=== PATIENT | female | born 1965 | race Caucasian/White ===

== ENCOUNTER 2016-08-22 08:46 | Emergency (ER) | payer OTHER ==
[2016-08-22 09:00] VITALS: BP 128/58
--- NOTE | 2016-08-22 10:27 | RAD ---
INDICATION: Knee pain COMPARISON: None TECHNIQUE: AP, lateral, and oblique views were obtained. FINDINGS: There is minor condylar spurring with spurring tibial spines. There is moderate spurring about the patellofemoral joint space compartment. There is no joint effusion. IMPRESSION: MILD TO MODERATE OSTEOARTHRITIS
--- NOTE | 2016-08-22 10:59 | UC ---
Sharonda Connell Matthew, scribed for Linda Zaragoza MD on 08/22/16 at 0937 . Knee Pain HPI - HPI Summary HPI Summary: A 51 y/o female presents to [facility] [place] [place] with gradually improving right knee pain since 6 days ago. The pain is rated 4/10 in severity and described as soreness. The patient states that she was carrying a laundry basket up the stairs, when she felt a "pop" in her right knee. She did not fall and the exact mechanism of injury is unknown. Immediately after the injury, the patient had limited ROM, swelling, and nausea. She has been icing the area, taking ibuprofen, and resting. She states the pain has improved since onset and she has been able to ambulate mildly today. She presents to [facility] today, because she want to insure nothing is structurally damaged. - History of Current Complaint Chief Complaint: UCLowerExtremity Stated Complaint: KNEE INJURY Time Seen by Provider: 08/22/16 09:29 Hx Obtained From: Patient Hx Last Menstrual Period: 08/01/16 ?: No Onset/Duration: Sudden Onset, Lasting Days - 6, Still Present Severity Initially: Moderate Severity Currently: Mild Location Of Injury: right knee Pain Intensity: 4 Pain Scale Used: 0-10 Numeric Aggravating Factor(s): Movement - ambulation, Weight Bearing Alleviating Factor(s): Rest, Cold - ice, OTC Meds - ibuprofen Associated Signs And Symptoms: Positive: Swelling - since resolved. Negative: Fever, Weakness, Numbness, Tingling Able to Bear Weight: Yes - Allergies/Home Medications Allergies/Adverse Reactions: Allergies Allergy/AdvReac Type Severity Reaction Status Date / Time No Known Allergies Allergy Verified 06/05/15 08:20 PMH/Surg Hx/FS Hx/Imm Hx Previously Healthy: Yes Endocrine History Of: Reports: Thyroid Disease - HYPOTHYROIDISM Psychological History Of: Reports: Anxiety - FEAR OF NEEDLES, IV, VERY ANXIOUS ABOUT THIS, Depression - ON MEDICATION Cancer History Of: Denies: Breast Cancer - Surgical History Surgical History: Yes Surgery Procedure, Year, and Place: 2001 RIGHT WRIST FRACTURE, [facility] [place]. 2002 BILATERAL TUBAL LIGATION, [facility] [place]. 2013 D & C, [facility] [place] - Family History Family History: No FHx of Breast CA - Social History Alcohol Use: Rare Substance Use Type: None Smoking Status (MU): Former Smoker Type: Cigarettes Amount Used/How Often: 3-4 CIG/DAY FOR 2 YRS Length of Time of Smoking/Using Tobacco: 2 YRS Have You Smoked in the Last Year: No When Did the Patient Quit Smoking/Using Tobacco: quit in high school Review of Systems Constitutional: Negative Skin: Negative Eyes: Negative ENT: Negative Respiratory: Negative Cardiovascular: Negative Gastrointestinal: Negative Genitourinary: Negative Motor: Negative Neurovascular: Negative Musculoskeletal: Arthralgia - right knee pain Neurological: Negative Psychological: Negative All Other Systems Reviewed And Are Negative: Yes Physical Exam Triage Information Reviewed: Yes Appearance: Well-Nourished Vital Signs: Initial Vital Signs Temp 97.6 F 08/22/16 08:52 Pulse 65 08/22/16 08:52 Resp 16 08/22/16 08:52 BP 128/58 08/22/16 08:52 Pulse Ox 100 08/22/16 08:52 Vital Signs Reviewed: Yes ENT Exam: Normal Neck exam: Normal - No Adenopathy appreciated Respiratory Exam: Normal - No Dsypnea, No tachypnea, normal respiratory rate Cardiovascular Exam: Normal Abdominal Exam: Normal Musculoskeletal Exam: Other - L knee nontender, no swelling. BLE feet warm to touch. No michael Homans ble. R knee with mild swelling visibly noted. Post knee with mild fluctuant swelling (susp Yates's cyst). + tender medial hamstring. Tender suprapat region. No crepitance. No laxity perse but + pain elicited with lateral rotation. Musculoskeletal: Positive: Strength Intact Neurological Exam: Normal - nonfocal, grossly intact Psychological Exam: Normal - conversing easily and appropraitely Skin Exam: Normal - no visible or reported rash Diagnostics - Radiology RT Knee XR Xray Interpretation: No Acute Changes - IMPRESSION: MILD TO MODERATE OSTEOARTHRITIS Radiology Interpretation Completed By: Radiologist Knee Pain Course/Dx - Course Course Of Treatment: No new problems in CCC. Considered below differential Dx s. Crutches encouraged. Declines. Reviewed xray results as noted in [facility]. Reviewed with pt. Encouraged f/u with pcp as scheduled on Tuesday. May benefit from phys therapy and orthopedic referral, but she will check with pcp on Tuesday. Declines knee immobilizer or parvez. She may purchase an over the counter brace. Knee immobilizer. Parvez. Questions answered to the best of my ability. - Differential Dx/Diagnosis Provider Diagnoses: R knee strain / sprain. c/n exclude internal injury Discharge - Discharge Plan Condition: Stable Disposition: HOME Patient Education Materials: Ibuprofen (By mouth), Knee Sprain (ED), Bakers Cyst (ED) Referrals: Lucas Sanchez MD [Primary Care Provider] - Additional Instructions: Follow up Dr. Sanchez on Tuesday. Seek medical attention for worse or new problems in the meantime. Avoid excess walking, stairs until you feel better. Consider walker etc for long periods of ambulation Consider parvez or over the counter knee brace (neoprene type) The documentation as recorded by the Sharonda phelps Matthew accurately reflects the service I personally performed and the decisions made by me, Linda Zaragoza MD.
== END 2016-08-22 10:47 | disposition home or self-care (01) ==
LOC: UCEAST 08:46
DX: S83.91XA Sprain of unspecified site of right knee, initial encounter (principal); X58.XXXA Exposure to other specified factors, initial encounter; Y93.E2 Activity, laundry; Y92.9 Unspecified place or not applicable; M17.11 Unilateral primary osteoarthritis, right knee; Z87.891 Personal history of nicotine dependence
CPT/HCPCS: 99211; G0463

== ENCOUNTER 2017-03-16 10:36 | Day surgery (SDC) | payer OTHER ==
[~2017-03-16 10:36] MED LIST: Buffered Lidocaine 0.9% SYRIN* 5 ML/SYR SYRINGE INTRADERM ONE
[2017-03-16] MEDS ORDERED: Buffered Lidocaine 0.9% SYRIN* 5 ML/SYR SYRINGE ONE (10:59)
[2017-03-16] MEDS ORDERED: Famotidine IV* 10 MG/ML 2 ML (20 mg) IV ONE (11:22)
[2017-03-16] MEDS ORDERED: Dexamethasone IV* 4 MG/ML 1 ML (4 MG) IV SLOW PU ONE (11:22)
[2017-03-16] MEDS ORDERED: Midazolam* 1 MG/ML 2 ML VIAL (2 MG) ONE ×2 (11:28→12:25)
[2017-03-16] MEDS ORDERED: fentaNYL* 50 MCG/ML 2 ML VIAL (100 MCG VIAL) ONE (11:28)
[2017-03-16] MEDS ORDERED: Dexamethasone IV* 4 MG/ML 1 ML (4 MG) ONE (11:30)
[2017-03-16] MEDS ORDERED: Famotidine IV* 10 MG/ML 2 ML (20 mg) ONE (11:31)
[2017-03-16 11:33] LABS: Hematocrit 43 % (35-47); Hemoglobin 14.4 g/dl (12.0-16.0); Mean Corpuscular HGB Conc 33 g/dl (31-36); Mean Corpuscular Hemoglobin 28 pg (27-31); Mean Corpuscular Volume 83 fL (80-97); Mean Platelet Volume 8 um3 (7.4-10.4); Red Cell Distribution Width 15 % (10.5-15); White Blood Count 6.3 10^3/ul (3.5-10.8)
[2017-03-16 11:39] LABS: Add Diff/Slide Review? Slide Review Added; Comments Flag Yes
[2017-03-16 12:12] LABS: TSH (Thyroid Stimulating Horm) 21.67 mcIU/mL (0.34-5.60)
[2017-03-16 12:21] LABS: Free T4 0.53 ng/dL (0.61-1.12)
[2017-03-16] MEDS ORDERED: Ketorolac INJ* 30 MG/ML 1 ML VIAL ONE (12:42)
[2017-03-16] MEDS ORDERED: Ondansetron INJ* 2 MG/ML VIAL ONE (12:42)
[2017-03-16] MEDS ORDERED: fentaNYL* 50 MCG/ML 2 ML VIAL (100 MCG VIAL) IV PRN (12:51)
[2017-03-16] MEDS ORDERED: DiMENhydriNATE IV* 50 MG/ML VIAL IV PUSH PRN (12:51)
[2017-03-16] MEDS ORDERED: Ibuprofen TAB* 600 MG PO PRN (13:21)
[2017-03-16] MEDS ORDERED: oxyCODONE/Acetamin 5/325 MG* TAB PO PRN ×2 (13:22→13:24)
[2017-03-16 14:32] VITALS: BP 118/42
--- NOTE | 2017-03-16 21:57 | OP ---
DATE OF OPERATION: 03/16/17 [facility] DATE OF : 61 SURGEON: Dr. Damian. ANESTHESIOLOGIST: Dr. Pelletier ANESTHESIA: General endotracheal. PRE-OP DIAGNOSES: Menorrhagia, irregular menses. POST-OP DIAGNOSES: Menorrhagia, irregular menses. PROCEDURE: Dilation, hysteroscopy, curettage. ESTIMATED BLOOD LOSS: Minimal, less than 20 cc. FINDINGS: Retroverted uterus. Uterus sounds to 10. Atrophic-appearing endometrium throughout. No polyps were seen. The tubal ostia were visualized bilaterally. No adnexal masses were palpated. COMPLICATIONS: None. COUNTS: Sponge count correct x2. CONDITION: The patient was brought to the recovery room, awake and in stable condition. DESCRIPTION OF PROCEDURE: The patient was brought to the operating room. When general anesthesia was found to be adequate, the patient was prepped and draped in the usual sterile fashion in the dorsal lithotomy position. Time-out was performed. Exam under anesthesia was performed with the above findings noted. The weighted speculum was placed in the vagina. The anterior lip of the cervix was grasped with a single-tooth tenaculum. The cervix was gently and easily dilated with a graduated Harper dilators. The uterus is retroverted. The hysteroscope was introduced. The endometrium appeared atrophic throughout. Both tubal ostia were visualized. The hysteroscope was removed. Curettage was performed and a small of endometrial curettings was obtained and sent to pathology. The single-tooth tenaculum was removed from the anterior lip of the cervix. Excellent hemostasis was noted. The speculum was removed from the vagina and the patient was brought to recovery room, awake and in stable condition. [id number]/[facility] #: [id number] [facility]
== END 2017-03-16 15:00 | disposition home or self-care (01) ==
LOC: OR 10:36
PROVIDERS: ATTEND Obstetrics & Gynecology
DX: N93.8 Other specified abnormal uterine and vaginal bleeding (principal); E03.9 Hypothyroidism, unspecified; Z87.891 Personal history of nicotine dependence; Z68.42 Body mass index [BMI] 45.0-49.9, adult
CPT/HCPCS: 36415; 81025; 84439; 84443; 85025; 86850; 86900; 86901; 88305; 88341; 88342; J1100; J1885; J2250; J2405; J3010

== ENCOUNTER 2017-04-01 08:22 | Emergency (ER) | payer OTHER ==
[2017-04-01] MEDS ORDERED: Ketorolac INJ* 60 MG/2 ML VIAL IM ONE (08:55)
[2017-04-01] MEDS ORDERED: LORazepam TAB(*) 1 MG PO ONE (08:55)
[2017-04-01] MEDS ORDERED: oxyCODONE/Acetamin 5/325 MG* TAB PO ONE (10:21)
[2017-04-01 11:40] VITALS: BP 116/53
--- NOTE | 2017-04-01 17:37 | ED ---
Wilber Connell Angela, scribed for Sumit Gaona MD on 04/01/17 at 0836 . Back Pain - HPI Summary HPI Summary: This pt is a 52 y/o female [facility] [place] [facility] [place]/o lower back pain for some time , worse over the last week. Pt reports that her back pain radiates to the lower back. She states that the pain is greater on the right side than left side of her back. Pt notes that her pain is worse in the morning with minimal relief during the rest of the day. She denies any injuries, falls, abd pain, lower extremity numbness or weakness, bowel or urinary incontinence, constipation, urinary symptoms. Pt states she has been taking ibuprofen 600 mg q8 as advised by her [facility]. Last night she took 1 oxycodone and this morning she took prednisone , both prescribed by her [facility]. - History of Current Complaint Chief Complaint: EDBackInjuryPain Stated Complaint: LOWER BACK PAIN Hx Obtained From: Patient Hx Last Menstrual Period: 08/01/16 Onset/Duration: Lasting Weeks, Worse Since - one week ago Timing: Constant Pain Intensity: 8 Associated Signs And Symptoms: Negative: Fever, Weakness, Numbness, Tingling, Abdominal Pain, Bladder Incontinence, Bowel Incontinence - Allergies/Home Medications Allergies/Adverse Reactions: Allergies Allergy/AdvReac Type Severity Reaction Status Date / Time No Known Allergies Allergy Verified 03/16/17 11:23 PMH/Surg Hx/FS Hx/Imm Hx Endocrine/Hematology History: Reports: Hx Thyroid Disease - HYPOTHYROIDISM History: Reports: Other Problems/Disorders - MENORRHAGIA FOR PAST 3-4 YRS Musculoskeletal History: Reports: Other Musculoskeletal History - RECENT LEFT SCIATIC FLARE UP, PAIN COMES AND GOES Sensory History: Reports: Hx Contacts or Glasses - GLASSES Denies: Hx Hearing Aid Opthamlomology History: Reports: Hx Contacts or Glasses - GLASSES Psychiatric History: Reports: Hx Anxiety - FEAR OF NEEDLES, IV, VERY ANXIOUS ABOUT THIS, Hx Depression - ON MEDICATION - Cancer History Hx Chemotherapy: No Hx Radiation Therapy: No - Surgical History Surgery Procedure, Year, and Place: 2001 RIGHT WRIST FRACTURE, [facility] [place]. 2002 BILATERAL TUBAL LIGATION, [facility] [place]. 2013 D & C, [facility] [place] Hx Anesthesia Reactions: No Infectious Disease History: Denies: Traveled Outside the [place] in Last 30 Days - Family History Family History: No FHx of Breast CA - Social History Alcohol Use: Rare Substance Use Type: Reports: None Smoking Status (MU): Former Smoker Type: Cigarettes Amount Used/How Often: 3-4 CIG/DAY FOR 2 YRS Length of Time of Smoking/Using Tobacco: 2 YRS Have You Smoked in the Last Year: No Review of Systems Negative: Fever, Chills Negative: Abdominal Pain Positive: other - NEGATIVE: urinary or bowel incontinence, constipation. Negative: dysuria, hematuria Negative: Weakness, Numbness All Other Systems Reviewed And Are Negative: Yes Physical Exam Triage Information Reviewed: Yes Vital Signs On Initial Exam: Initial Vitals Temp Pulse Resp BP Pulse Ox 98.0 F 66 16 157/83 97 04/01/17 08:24 04/01/17 08:24 04/01/17 08:24 04/01/17 08:24 04/01/17 08:24 Vital Signs Reviewed: Yes Appearance: Positive: Well-Appearing, Obese Skin: Positive: Skin Color Reflects Adequate Perfusion, Dry Head/Face: Positive: Normal Head/Face Inspection Eyes: Positive: Normal ENT: Positive: Normal ENT inspection Neck: Positive: Supple, Nontender Respiratory/Lung Sounds: Positive: Clear to Auscultation, Breath Sounds Present Cardiovascular: Positive: RRR Abdomen Description: Positive: Nontender, Soft Bowel Sounds: Positive: Present Musculoskeletal: Positive: Other - Positive straight leg raise on the left. Neurological: Positive: Normal, Sensory/Motor Intact, Reflexes Intact Psychiatric: Positive: Normal, Affect/Mood Appropriate Diagnostics - Vital Signs Vital Signs Temp Pulse Resp BP Pulse Ox 04/01/17 08:24 98.0 F 66 16 157/83 97 - Laboratory Lab Statement: Any lab studies that have been ordered have been reviewed, and results considered in the medical decision making process. Re-Evaluation - Re-Evaluation First Eval Comment: Pt is still in pain. Will prescribe oxycodone. Back Pain Course/Dx - Course Course Of Treatment: Ms. Steel has had low back pain for some time but the last few days she has become more disabled. It hurts every time she moves and the pain radiates down her bilateral buttocks. She was given prednisone by her PMD and took her first dose this AM. I will treat her symptomatically by adding ativan as a muscle relaxer until the steroids can kick in. - Diagnoses Provider Diagnoses: Sciatica Discharge - Discharge Plan Condition: Stable Disposition: HOME Prescriptions: LORazepam TAB(*) [Ativan TAB(*)] 1 mg PO Q6H PRN #20 tab MDD 4 PRN Reason: Pain Patient Education Materials: Sciatica (ED) Forms: *Work Release Referrals: Faye Carter NP [Primary Care Provider] - Additional Instructions: Your blood pressure was elevated during todays visit. Please follow up with your primary care provider. The documentation as recorded by the Wilber phelps Angela accurately reflects the service I personally performed and the decisions made by me, Sumit Gaona MD.
== END 2017-04-01 11:51 | disposition home or self-care (01) ==
LOC: ED 08:22
DX: M54.5 Low back pain (principal); M54.30 Sciatica, unspecified side
CPT/HCPCS: 96372; 99282; A9270-GY; J1885

== ENCOUNTER 2022-08-11 05:48 | Inpatient (IN) ==
[2022-08-11] MEDS ORDERED: Buffered Lidocaine 1% SYRIN 1 ml INTRADERM ONE (06:00)
[2022-08-11] MEDS ORDERED: Lactated Ringers 1000 ml BAG 1,000 ML IV SCH (06:00)
[2022-08-11] MEDS ORDERED: Chlorhexidine MOUTHWASH 0.12% 15 ML UDC ONE (06:06)
[2022-08-11] MEDS ORDERED: ceFAZolin 2 GM in NS PREMIX 2 GM/100 ML BAG IVPB ONE (06:15)
[2022-08-11] MEDS ORDERED: Midazolam 5 mg/5 ml VIAL 1 mg/ml 5 ml VIAL (5 mg) ONE (06:53)
[2022-08-11] MEDS ORDERED: Rocuronium 50 mg VIAL 10 mg/ml 5 ml VIAL (50 mg) ONE ×3 (06:53→09:51)
[2022-08-11] MEDS ORDERED: Propofol 10 MG/ML 20 ML BTL ONE ×2 (06:53→09:44)
[2022-08-11] MEDS ORDERED: Lidocaine 2% PF 5 ML VIAL ONE (06:53)
[2022-08-11] MEDS ORDERED: fentaNYL 250 mcg/5 ml 50 MCG/ML 5 ml VIAL (250 MCG) ONE (06:53)
[2022-08-11] MEDS ORDERED: Phenylephrine IV 10 MG/ML 1 ml VIAL ONE (06:56)
[2022-08-11] MEDS ORDERED: Thrombin 5,000 UNITS 1 APPLIC KIT - topical use - TOPICAL ONE (07:08)
[2022-08-11] MEDS ORDERED: Gelfoam Sponge SIZE 100 SPONGE ONE (07:09)
[2022-08-11] MEDS ORDERED: ceFAZolin VIAL VIAL ONE (07:09)
[2022-08-11] MEDS ORDERED: Ondansetron 4 mg VIAL 2 MG/ML 2 ml VIAL IV PRN ×2 (07:30→10:51)
[2022-08-11] MEDS ORDERED: Naloxone 0.4 mg VIAL 0.4 mg/ml 1 ml VIAL IV PRN (07:30)
[2022-08-11] MEDS ORDERED: HYDROmorphone 0.5 MG/0.5 ML SYRINGE ONE ×3 (08:06→10:13)
[2022-08-11] MEDS ORDERED: Dexamethasone IV 4 MG/ML VIAL 1 ml VIAL ONE (09:44)
[2022-08-11] MEDS ORDERED: Ondansetron 4 mg VIAL 2 MG/ML 2 ml VIAL ONE (09:44)
[2022-08-11] MEDS ORDERED: Naloxone 4 mg VIAL 0.4 MG/ML 10 ml VIAL (4 mg) ONE (10:37)
[2022-08-11] MEDS ORDERED: Morphine 2 MG/ML SYRINGE IV PRN (10:57)
[2022-08-11] MEDS ORDERED: fentaNYL 100 mcg/2 ml 50 MCG/ML VIAL ONE (11:51)
[2022-08-11] MEDS: fentaNYL 100 mcg/2 ml 50 MCG/ML VIAL IV PRN ×3 (11:53→12:15)
[2022-08-11] MEDS: Lactated Ringers 1000 ml BAG 1,000 ML IV SCH (14:44)
[2022-08-12] MEDS: Lactated Ringers 1000 ml BAG 1,000 ML IV SCH (04:44)
[2022-08-12] MEDS: DULoxetine DR 60 mg CAP PO SCH (08:58)
[2022-08-12] MEDS: DULoxetine DR 20 mg CAP PO SCH (08:58)
[2022-08-12] MEDS: LINACLOTIDE 72 MCG CAP (NF) PO SCH (08:59)
[2022-08-12] MEDS: Senna TAB 8.6 mg TAB PO PRN (20:05)
[2022-08-13 10:57] VITALS: BP 88/60
[2022-08-13] MEDS: DULoxetine DR 60 mg CAP PO SCH (11:23)
[2022-08-13] MEDS: Senna TAB 8.6 mg TAB PO PRN (11:23)
[2022-08-13] MEDS: DULoxetine DR 20 mg CAP PO SCH (11:23)
[2022-08-13] MEDS: LINACLOTIDE 72 MCG CAP (NF) PO SCH (11:25)
== END 2022-08-13 14:55 | disposition home or self-care (01) | DRG 455 ==
LOC: AA 05:48 → SSU 10:51
PROVIDERS: ADMIT Neurological Surgery; ATTEND Neurological Surgery